=== PATIENT | male | born 1980 | race Caucasian/White ===

== ENCOUNTER 2020-11-12 02:13 | Outpatient (CLI) | payer OTHER, SELFPAY ==
[2020-11-13 09:44] LABS: Hepatitis B Surface Ag Negative (Negative)
[2020-11-13 10:06] LABS: Syphilis Serology (RPR) Negative (Negative)
[2020-11-13 10:18] LABS: HIV-1/2 Ag & Ab Screen Negative (Negative)
[2020-11-13 10:37] LABS: Hepatitis C Ab w Rflx HCV PCR Negative (Negative)
[2020-11-18 10:03] LABS: Chlamydia Result Negative (Negative); GC Result Negative (Negative)
== END 2020-11-12 02:14 | disposition home or self-care (01) ==
LOC: LBO 02:13
PROVIDERS: PCP Emergency Medicine; Visit Provider Obstetrics & Gynecology
DX: Z11.3 Encounter for screening for infections with a predominantly sexual mode of transmission (principal); Z11.4 Encounter for screening for human immunodeficiency virus [HIV]; Z11.59 Encounter for screening for other viral diseases
CPT/HCPCS: 36415; 86803; 87340; 87389; 87491; 87591; 86592; 86704

== ENCOUNTER 2023-01-03 22:22 | Outpatient (REF) | payer OTHER, SELFPAY ==
[2023-01-04 00:01] LABS: COMMENT (LAB VIEW ONLY) 235.23 mg/dL; Microalb ug/mg Crea 4.2 ug/mg Cr
== END 2023-01-03 22:23 | disposition home or self-care (01) ==
LOC: LBN 22:22
PROVIDERS: PCP Nurse Practitioner Family; Visit Provider Nurse Practitioner Family
DX: I10 Essential (primary) hypertension (principal)
CPT/HCPCS: 82043; 82570

== ENCOUNTER 2023-01-10 03:11 | Outpatient (CLI) | payer OTHER, SELFPAY ==
[2023-01-10 14:00] LABS: ALT 55 U/L (16-63); AST 26 U/L (15-37); Albumin 4.5 g/dL (3.4-5.0); Alkaline Phosphatase 74 U/L (46-116); Anion Gap 8.3 mmol/L (3-11); BUN 13 mg/dL (7-18); Bilirubin, Total 0.9 mg/dL (0.2-1.0); CO2 28.7 mmol/L (21.0-32.0); Calcium 9.5 mg/dL (8.5-10.1); Calculated LDL 189 mg/dL (<100); Chloride 103 mmol/L (98-107); Cholesterol 254 mg/dL (<200); Estimated GFR 96.97 (mL/min/1.73m2); Glucose 116 mg/dL (74-106); HDL Cholesterol 47 mg/dL (40-60); Potassium 4.1 mmol/L (3.5-5.1); Sodium 140 mmol/L (136-145); Total Protein 8.1 g/dL (6.4-8.2); Triglyceride 92 mg/dL (<150)
[2023-01-11 10:08] LABS: Hepatitis C Ab w Rflx HCV PCR Negative (Negative)
[2023-01-11 10:47] LABS: HIV-1/2 Ag & Ab Screen Negative (Negative)
== END 2023-01-10 03:12 | disposition home or self-care (01) ==
LOC: LBO 03:11
PROVIDERS: PCP Nurse Practitioner Family; Visit Provider Nurse Practitioner Family
DX: Z13.220 Encounter for screening for lipoid disorders (principal); Z11.4 Encounter for screening for human immunodeficiency virus [HIV]; Z11.59 Encounter for screening for other viral diseases; R03.0 Elevated blood-pressure reading, without diagnosis of hypertension
CPT/HCPCS: 36415; 80053; 80061; 86803; 87389

== ENCOUNTER 2024-02-27 19:17 | Outpatient (REF) | payer OTHER, SELFPAY ==
[2024-02-27 21:54] LABS: Anion Gap 11.4 mmol/L (3-11); BUN 20 mg/dL (7-18); CO2 25.6 mmol/L (21.0-32.0); CREATININE 1.2 mg/dL (0.70-1.30); Calcium 9.4 mg/dL (8.5-10.1); Chloride 106 mmol/L (98-107); Estimated GFR 77.43 (mL/min/1.73m2); Glucose 117 mg/dL (74-106); Sodium 143 mmol/L (136-145)
[2024-02-28 08:47] LABS: Lab Add On Test DONE
[2024-02-28 09:10] LABS: Hemoglobin A1C 5.5 % (<5.7)
== END 2024-02-27 19:18 | disposition home or self-care (01) ==
LOC: LBN 19:17
PROVIDERS: PCP Nurse Practitioner Family; Visit Provider Nurse Practitioner Family
DX: R73.9 Hyperglycemia, unspecified (principal); I10 Essential (primary) hypertension
CPT/HCPCS: 80048; 83036

== ENCOUNTER 2024-08-27 21:19 | Outpatient (REF) | payer OTHER, SELFPAY ==
[2024-08-27 21:54] LABS: HCT 44.8 % (40.0-50.0); HGB 15.5 g/dL (13.5-17.5); MCHC 34.6 % (32.0-36.0); MCV 87 fL (80-95); MPV 10.3 fL (8.0-11.0); Platelet Count 181 10^3/uL (130-400); RBC 5.16 10^6/uL (4.36-5.78); RDW 12.3 % (11.8-14.1); RDW-SD 39.2 fL; WBC 6.78 10^3/uL (4.4-10.8)
[2024-08-27 22:21] LABS: TSH (W/Ref FT4) 1.71 uIU/mL (0.36-3.74)
== END 2024-08-27 21:20 | disposition home or self-care (01) ==
LOC: LBN 21:19
PROVIDERS: PCP Nurse Practitioner Family; Visit Provider Nurse Practitioner Family
DX: R53.83 Other fatigue (principal)
CPT/HCPCS: 85027; 84443